=== PATIENT | male | born 1960 | race African-American/Black ===

== ENCOUNTER 2023-02-08 12:18 | Outpatient (CLI) | payer OTHER ==
[~2023-02-08 12:18] MED LIST: Iopamidol 370 76% 100 ML VIAL ONE
== END 2023-02-08 12:19 | disposition home or self-care (01) ==
LOC: CT 12:18
PROVIDERS: ATTEND Student in an Organized Health Care Education/Training Program
DX: I73.9 Peripheral vascular disease, unspecified (principal); I70.90 Unspecified atherosclerosis; I77.1 Stricture of artery; I77.89 Other specified disorders of arteries and arterioles; N32.89 Other specified disorders of bladder
CPT/HCPCS: 75635

== ENCOUNTER 2023-04-11 09:30 | Outpatient (CLI) | payer OTHER ==
[2023-04-11] MEDS ORDERED: Iopamidol 370 76% 100 ML VIAL ONE (13:05)
== END 2023-04-11 09:31 | disposition home or self-care (01) ==
LOC: RAD 09:30
PROVIDERS: ATTEND Emergency Medicine
DX: R06.02 Shortness of breath (principal); J90 Pleural effusion, not elsewhere classified; J98.11 Atelectasis; R59.0 Localized enlarged lymph nodes; I51.7 Cardiomegaly; T82.858A Stenosis of other vascular prosthetic devices, implants and grafts, initial encounter; K44.9 Diaphragmatic hernia without obstruction or gangrene
CPT/HCPCS: 71275; Q9967